=== PATIENT | male | born 1980 | race African-American/Black ===

== ENCOUNTER 2023-01-28 16:02 | Inpatient (IN) ==
--- NOTE | 2023-01-28 16:14 | ED Triage Note ---
Date of Service January 28, 2023 History of Present Illness This patient was briefly evaluated while in triage. An abbreviated physical exam was performed. This patient is a 42-year-old Male who presents to the ED for evaluation of chest pain and anxiety, also having suicidal thoughts. Notes that he is having increased emotional pain due to recent loss of his father, as well as the anniversary of his mother's . [place] and ran out of his medications, including Wellbutrin, which he has not taken in 4 days. He states he had severe chest pain that woke him up around 4am and lasted about 30 minutes, no chest pain now. Denies SOB, dizziness, syncope, nausea, vomiting. Physical Exam CONSTITUTIONAL: No acute distress. Well appearing. RESPIRATORY: Clear to auscultation bilaterally. Equal expansion bilaterally. CARDIOVASCULAR: Regular rate and rhythm with no murmurs, rubs or gallops. Normal peripheral perfusion. No peripheral edema. GASTROINTESTINAL: Soft NEUROLOGIC: Alert and oriented X 4. Normal speech. Normal gait observed. Initial orders for labs and / or imaging were placed and patient was placed in the waiting area until a bed is available. Please see further documentation for the full ED course.
[2023-01-28] MEDS ORDERED: ASPIRIN CHEW 324 MG PO STA (16:35)
[2023-01-28] MEDS ORDERED: hydrALAZINE HCL 20 MG/ML VIAL IV STA (16:39)
--- NOTE | 2023-01-28 16:48 | Emergency Department Note ---
History of Present Illness General Chief complaint: Mental Health Evaluation Stated complaint: PSYCH ISSUES Time Seen by Provider: 01/28/23 16:27 History of Present Illness 42-year-old male presents emergency department with a complaint of substernal chest pressure that radiates to his left arm that started at 4:30 AM this morning. Patient has a history of diabetes and hypertension. Patient also presents stating that he feels depressed with suicidal ideation but no specific plan. Patient does take Wellbutrin he forgot to take it this morning. Patient states that his father recently in November his mother in December and his brother in January and this is weighing heavily on him. Patient states that he did not take anything for the pain he did not take any medications prior to arrival. Patient denies alcohol or drug ingestion. Patient states that the chest pressure was substernal in nature and radiated to the left arm. Patient denies any nausea vomiting denies diaphoresis. There are no other mitigating or alleviating factors Allergies Allergy/AdvReac Type Severity Reaction Status Date / Time No Known Allergies Allergy Unverified 01/28/23 17:04 Past Med/Surg History Social History Smoking Status: Current every day smoker Feels Safe at Home: Yes Review of Systems A total of 10 systems reviewed and were otherwise negative Cardiovascular: + chest pain Psychiatric: + depression, + suicidal ideation and + anxiety Physical Exam Vital Signs Vital Signs - 24 hr 01/28/23 16:09 01/28/23 17:04 01/28/23 18:46 Temperature 36.5 C Temperature Source Skin Pulse Rate 89 Pulse Rate [Left Finger] 96 H 96 H Respiratory Rate 20 20 20 Respiratory Effort / Characteristics Non-Labored Spontaneous Respiratory Depth Normal Respiratory Pattern Regular Blood Pressure 208/111 H Blood Pressure [Left Arm] 157/92 H 157/101 H Blood Pressure Mean 143 Blood Pressure Mean [Left Arm] 113 119 Pulse Oximetry 97 98 98 Oxygen Delivery Method Room Air Sepsis Recent Fever Within 48 Hours No Sepsis New/Unexplained Change in Mental Status N/A Sepsis Action Taken by Nursing No Action Required GENERAL: Patient is awake alert in no acute distress patient is resting comfort ably and showing no signs of anxiety EYES: The conjunctivae are clear. The pupils are round and reactive. EARS, NOSE, MOUTH AND THROAT: The nose is without any evidence of any deformity. Mucous membranes are moist. Tongue is midline. NECK: The neck is nontender and supple. RESPIRATORY: Normal respiratory effort is noted there is no evidence of wheezing rhonchi or rales CARDIOVASCULAR: Regular rate and rhythm noted there no murmurs rubs or gallops normal S1 normal S2. GASTROINTESTINAL: The abdomen is soft. Abdomen is nontender. BMI>40 BACK: No midline tenderness or or step-off noted range of motion in flexion extension as well as rotation no signs of muscle spasm noted MUSCULOSKELETAL/EXTREMITIES: There is no evidence of gross deformity full range of motion is noted in the hips and shoulders. SKIN: There is no obvious evidence of any rash. There are no petechiae, pallor or cyanosis noted. NEUROLOGIC: Patient is awake alert and oriented x3 strength is symmetric PSYCH: Mild depression, suicidal ideations without specific plan Course Reevaluation(s) Reevaluation #1: Patient is resting in no distress his blood pressure did decrease after 1 dose of IV hydralazine, the patient was given aspirin Time: 19:08 Consultations Consultation #1: Case was discussed with Dr. Dahl from the [facility] program for admission for chest pain and suicidal ideation Time: 17:59 Consultation #2: This case was discussed with the [facility] as the case was turned over to them as an unassigned patient and I discussed evaluation and disposition with them. The patient will be admitted to Dr. Perdomo Time: 19:08 Administered Medications Discontinued Medications Aspirin (Aspirin Chew 324 Mg) 324 mg PO NOW STA Stop: 01/28/23 16:36 Last Admin: 01/28/23 16:55 Dose: 324 mg Documented By: SAMI Hydralazine HCl (Hydralazine Hcl 20 Mg/Ml Vial) 10 mg IV NOW STA Stop: 01/28/23 16:40 Last Admin: 01/28/23 16:55 Dose: 10 mg Documented By: SAMI Critical Care Time Critical Care Time: Yes Total Critical Care Time: 35 I have personally spent greater than 35 minutes of critical care time in the direct management of this patient. This includes bedside care, interpretation of diagnostic studies, and testing, discussion with consultants, patient, and family members, and other required patient management activities. These minutes are in excess of all separately billable procedures. Medical Decision Making Medical Records Attestation: I reviewed the patient's medical records. Home Medications Current Medication List: was personally reviewed by me Laboratory Data Attestation: I reviewed the patient's lab results. Lab work interpreted by me is unremarkable 01/28/23 16:42 01/28/23 16:42 Lab Results 01/28/23 01/28/23 01/28/23 Range/Units 16:24 16:24 16:42 WBC 7.46 (4.8-10.8) K/ul RBC 5.09 (4.70-6.10) M/uL Hgb 13.9 L (14.0-18.0) g/dl Hct 42.1 (42.0-52.0) % MCV 82.7 (80.0-100.0) fL MCH 27.3 (25.0-34.0) pg MCHC 33.0 (32.0-36.0) g/dL RDW Std Deviation 40.0 (36.4-46.3) fL RDW Coeff of Dain 13.3 (11.5-14.5) % Plt Count 272 (130-400) K/uL MPV 10.3 (9.4-12.4) fL Immature Gran % (Auto) 0.3 % Neut % (Auto) 77.5 % Lymph % (Auto) 9.1 % [place] % (Auto) 7.6 % Eos % (Auto) 5.1 % Baso % (Auto) 0.4 % Neut # (Auto) 5.78 (1.40-6.50) K/uL Lymph # (Auto) 0.68 L (1.2-3.4) K/uL [place] # (Auto) 0.57 (0.11-0.59) K/uL Eos # (Auto) 0.38 (0-0.50) K/uL Baso # (Auto) 0.03 (0-0.2) K/uL Immature Gran # (Auto) 0.02 (0.01-0.20) K/uL Sodium (136-145) mmol/L Potassium (3.5-5.1) mmol/L Chloride (98-107) mmol/L Carbon Dioxide (21-32) mmol/L Anion Gap (3-11) BUN (6-23) mg/dl Creatinine (0.6-1.4) mg/dl Est Cr Clr Drug Dosing ml/min Est GFR ( Amer) ml/min Est GFR (Non-Af Amer) ml/min BUN/Creatinine Ratio (10-20) Glucose (70-99(Fasting)) mg/dl Calcium (8.6-10.3) mg/dl Total Bilirubin (0.2-1.0) mg/dl AST (13-39) U/L ALT (7-52) U/L Alkaline Phosphatase (34-104) U/L Troponin I High Sens (0-20) pg/ml Total Protein (6.0-8.3) gm/dl Albumin (3.4-5.0) gm/dl Globulin (2.5-4.0) gm/dl Albumin/Globulin Ratio (0.9-2) TSH (0.300-4.500) uIu/ml Urine Color Dark Yellow Urine Appearance Clear (Clear) Urine pH 6.0 (4.5-7.5) Ur Specific [place] 1.026 (1.000-1.030) Urine Protein 2+ H (Negative) Urine Glucose (UA) Negative (Negative) Urine Ketones Trace H (Negative) Urine Blood Negative (Negative) Urine Nitrite Negative (Negative) Urine Bilirubin Negative (Negative) Urine Urobilinogen Negative (Negative) Ur Leukocyte Esterase Negative (Negative) Urine WBC (Auto) 1-5 (0-5) /hpf Urine RBC (Auto) 0-4 (0-4) /hpf U Hyaline Cast (Auto) 5-10 H (0-5) /lpf U Epithel Cells (Auto) 10-20 H (0-5) /lpf Urine Bacteria (Auto) Negative (Negative) Salicylates (3.0-30) mg/dl Urine Opiates Screen Neg (Neg) Ur Methadone, Qual Neg (Neg) Acetaminophen (10-30) ug/ml Urine Barbiturates Neg (Neg) Ur Phencyclidine (PCP) Neg (Neg) U Amphetamin/Meth Scrn Neg (Neg) MDMA (Ecstasy) Screen Neg (Neg) U Benzodiazepines Scrn Neg (Neg) Ur Cocaine Metabolite Neg (Neg) U Marijuana (THC) Screen Neg (Neg) Ethyl Alcohol mg/dL (<10.0) mg/dl 01/28/23 01/28/23 01/28/23 Range/Units 16:42 16:42 16:42 WBC (4.8-10.8) K/ul RBC (4.70-6.10) M/uL Hgb (14.0-18.0) g/dl Hct (42.0-52.0) % MCV (80.0-100.0) fL MCH (25.0-34.0) pg MCHC (32.0-36.0) g/dL RDW Std Deviation (36.4-46.3) fL RDW Coeff of Dain (11.5-14.5) % Plt Count (130-400) K/uL MPV (9.4-12.4) fL Immature Gran % (Auto) % Neut % (Auto) % Lymph % (Auto) % [place] % (Auto) % Eos % (Auto) % Baso % (Auto) % Neut # (Auto) (1.40-6.50) K/uL Lymph # (Auto) (1.2-3.4) K/uL [place] # (Auto) (0.11-0.59) K/uL Eos # (Auto) (0-0.50) K/uL Baso # (Auto) (0-0.2) K/uL Immature Gran # (Auto) (0.01-0.20) K/uL Sodium 135 L (136-145) mmol/L Potassium 3.8 (3.5-5.1) mmol/L Chloride 106 (98-107) mmol/L Carbon Dioxide 23 (21-32) mmol/L Anion Gap 6 (3-11) BUN 12 (6-23) mg/dl Creatinine 1.00 (0.6-1.4) mg/dl Est Cr Clr Drug Dosing 160.8 ml/min Est GFR ( Amer) 108.6 ml/min Est GFR (Non-Af Amer) 93.7 ml/min BUN/Creatinine Ratio 12.0 (10-20) Glucose 163 H (70-99(Fasting)) mg/dl Calcium 9.0 (8.6-10.3) mg/dl Total Bilirubin 0.6 (0.2-1.0) mg/dl AST 16 (13-39) U/L ALT 18 (7-52) U/L Alkaline Phosphatase 95 (34-104) U/L Troponin I High Sens 5.4 (0-20) pg/ml Total Protein 7.7 (6.0-8.3) gm/dl Albumin 3.8 (3.4-5.0) gm/dl Globulin 3.9 (2.5-4.0) gm/dl Albumin/Globulin Ratio 1.0 (0.9-2) TSH 1.309 (0.300-4.500) uIu/ml Urine Color Urine Appearance (Clear) Urine pH (4.5-7.5) Ur Specific [place] (1.000-1.030) Urine Protein (Negative) Urine Glucose (UA) (Negative) Urine Ketones (Negative) Urine Blood (Negative) Urine Nitrite (Negative) Urine Bilirubin (Negative) Urine Urobilinogen (Negative) Ur Leukocyte Esterase (Negative) Urine WBC (Auto) (0-5) /hpf Urine RBC (Auto) (0-4) /hpf U Hyaline Cast (Auto) (0-5) /lpf U Epithel Cells (Auto) (0-5) /lpf Urine Bacteria (Auto) (Negative) Salicylates < 3.0 L (3.0-30) mg/dl Urine Opiates Screen (Neg) Ur Methadone, Qual (Neg) Acetaminophen < 3 L (10-30) ug/ml Urine Barbiturates (Neg) Ur Phencyclidine (PCP) (Neg) U Amphetamin/Meth Scrn (Neg) MDMA (Ecstasy) Screen (Neg) U Benzodiazepines Scrn (Neg) Ur Cocaine Metabolite (Neg) U Marijuana (THC) Screen (Neg) Ethyl Alcohol mg/dL (<10.0) mg/dl 01/28/23 Range/Units 16:42 WBC (4.8-10.8) K/ul RBC (4.70-6.10) M/uL Hgb (14.0-18.0) g/dl Hct (42.0-52.0) % MCV (80.0-100.0) fL MCH (25.0-34.0) pg MCHC (32.0-36.0) g/dL RDW Std Deviation (36.4-46.3) fL RDW Coeff of Dain (11.5-14.5) % Plt Count (130-400) K/uL MPV (9.4-12.4) fL Immature Gran % (Auto) % Neut % (Auto) % Lymph % (Auto) % [place] % (Auto) % Eos % (Auto) % Baso % (Auto) % Neut # (Auto) (1.40-6.50) K/uL Lymph # (Auto) (1.2-3.4) K/uL [place] # (Auto) (0.11-0.59) K/uL Eos # (Auto) (0-0.50) K/uL Baso # (Auto) (0-0.2) K/uL Immature Gran # (Auto) (0.01-0.20) K/uL Sodium (136-145) mmol/L Potassium (3.5-5.1) mmol/L Chloride (98-107) mmol/L Carbon Dioxide (21-32) mmol/L Anion Gap (3-11) BUN (6-23) mg/dl Creatinine (0.6-1.4) mg/dl Est Cr Clr Drug Dosing ml/min Est GFR ( Amer) ml/min Est GFR (Non-Af Amer) ml/min BUN/Creatinine Ratio (10-20) Glucose (70-99(Fasting)) mg/dl Calcium (8.6-10.3) mg/dl Total Bilirubin (0.2-1.0) mg/dl AST (13-39) U/L ALT (7-52) U/L Alkaline Phosphatase (34-104) U/L Troponin I High Sens (0-20) pg/ml Total Protein (6.0-8.3) gm/dl Albumin (3.4-5.0) gm/dl Globulin (2.5-4.0) gm/dl Albumin/Globulin Ratio (0.9-2) TSH (0.300-4.500) uIu/ml Urine Color Urine Appearance (Clear) Urine pH (4.5-7.5) Ur Specific [place] (1.000-1.030) Urine Protein (Negative) Urine Glucose (UA) (Negative) Urine Ketones (Negative) Urine Blood (Negative) Urine Nitrite (Negative) Urine Bilirubin (Negative) Urine Urobilinogen (Negative) Ur Leukocyte Esterase (Negative) Urine WBC (Auto) (0-5) /hpf Urine RBC (Auto) (0-4) /hpf U Hyaline Cast (Auto) (0-5) /lpf U Epithel Cells (Auto) (0-5) /lpf Urine Bacteria (Auto) (Negative) Salicylates (3.0-30) mg/dl Urine Opiates Screen (Neg) Ur Methadone, Qual (Neg) Acetaminophen (10-30) ug/ml Urine Barbiturates (Neg) Ur Phencyclidine (PCP) (Neg) U Amphetamin/Meth Scrn (Neg) MDMA (Ecstasy) Screen (Neg) U Benzodiazepines Scrn (Neg) Ur Cocaine Metabolite (Neg) U Marijuana (THC) Screen (Neg) Ethyl Alcohol mg/dL < 10.0 (<10.0) mg/dl Imaging Data Attestation: I personally reviewed and interpreted this imaging study as follows: My Impression: Chest x-ray interpreted by me normal mediastinum no obvious infiltrate no pneum othorax poor inspiratory effort Radiologist's Impression: Chest X-Ray 01/28/23 16:14 XR chest 1V portable CLINICAL HISTORY: chest pain TECHNIQUE: Single frontal radiograph of the chest was obtained. Comparison: None available at the time of this dictation. FINDINGS: No lines and tubes are seen. The cardiomediastinal silhouette is normal. Lungs are underinflated but clear. No evidence of pleural effusion or pneumothorax. IMPRESSION: No acute chest disease. ACT 112: Negative or not required by law. Electronically signed by: Edgar Patiño M.D. 01/28/2023 5:16 PM ECG Data Attestation: I personally reviewed and interpreted this ECG as follows: Additional Comments: EKG interpreted by me normal sinus rhythm nonspecific T wave abnormality no obvious ST segment elevation or depression rate is 86 Telemetry was ordered by me interpreted as normal sinus rhythm rate of 86 Blood Pressure Blood Pressure Findings: Elevated blood pressure MDM Narrative Medical decision making differential diagnosis includes angina, unstable angina, hypertensive crisis, hypertensive emergency, depression, suicidal ideation, electrolyte abnormality Plan is to check cardiac labs, psychiatric labs for medical clearance, treat with aspirin, hydralazine Case management to evaluate for psychiatric disposition Patient's heart score is a 4 Patient was started on IV hydralazine for blood pressure control he is not in hypertensive crisis at this time, patient was also given aspirin, patient will be admitted for cardiac rule out as well as psychiatric consultation Impression & Plan Chest pain, Suicidal ideation, Hypertensive urgency Discharge Plan Visit Data Chief Complaint: Mental Health Evaluation Stated Complaint: PSYCH ISSUES ED Provider: Francisco Aponte Discharge Problem: Chest pain, Suicidal ideation, Hypertensive urgency Patient Disposition: Admitted As Inpatient Forms Stand Alone Forms: [facility], Suicide Prevention Resources Referrals Referrals: PCP,NO [Primary Care Provider] -
[2023-01-28 16:49] LABS: Appearance Urine Clear (Clear); Bacteria Urine Automated Negative (Negative); Bilirubin Urine Negative (Negative); Blood Urine Negative (Negative); Color Urine Dark Yellow; Glucose Urine UA Negative (Negative); Ketones Urine Trace (Negative); Leukocyte Esterase Urine Negative (Negative); Nitrite Urine Negative (Negative); Protein Urine 2+ (Negative); RBC Urine Automated 0-4 /hpf (0-4); Specific Gravity Urine 1.026 (1.000-1.030); Urobilinogen Urine Negative (Negative)
[2023-01-28 17:05] LABS: Amphetamines+Metham, Urine Neg (Neg); Barbiturates, Urine Neg (Neg); Benzodiazepine, Urine Neg (Neg); Cocaine, Urine Neg (Neg); MDMA (Ecstacy), Urine Neg (Neg); Methadone, Urine Neg (Neg); Opiate, Urine Neg (Neg); Phencyclidine, Urine Neg (Neg)
[2023-01-28 17:08] LABS: Basophils # (auto) 0.03 K/uL (0-0.2); Basophils % (auto) 0.4 %; Eosinophils # (auto) 0.38 K/uL (0-0.50); Eosinophils % (auto) 5.1 %; Hematocrit (blood only) 42.1 % (42.0-52.0); Hemoglobin 13.9 g/dl (14.0-18.0); Immature Granulocytes # (auto) 0.02 K/uL (0.01-0.20); Immature Granulocytes % (auto) 0.3 %; Lymphocytes # (auto) 0.68 K/uL (1.2-3.4); Lymphocytes % (auto) 9.1 %; Mean Corpuscular Hemoglobin 27.3 pg (25.0-34.0); Mean Corpuscular Volume 82.7 fL (80.0-100.0); Mean Platelet Volume 10.3 fL (9.4-12.4); Monocytes # (auto) 0.57 K/uL (0.11-0.59); Monocytes % (auto) 7.6 %; Neutrophils # (auto) 5.78 K/uL (1.40-6.50); Neutrophils % (auto) 77.5 %; Platelet Count 272 K/uL (130-400); RDW Coefficient of Variation 13.3 % (11.5-14.5); Red Blood Count 5.09 M/uL (4.70-6.10); White Blood Count 7.46 K/ul (4.8-10.8)
--- NOTE | 2023-01-28 17:18 | XRay Report ---
XR chest 1V portable CLINICAL HISTORY: chest pain TECHNIQUE: Single frontal radiograph of the chest was obtained. Comparison: None available at the time of this dictation. FINDINGS: No lines and tubes are seen. The cardiomediastinal silhouette is normal. Lungs are underinflated but clear. No evidence of pleural effusion or pneumothorax. IMPRESSION: No acute chest disease. ACT 112: Negative or not required by law. Electronically signed by: Edgar Patiño M.D. 01/28/2023 5:16 PM
[2023-01-28 17:25] LABS: Albumin Level 3.8 gm/dl (3.4-5.0); Bilirubin,Total 0.6 mg/dl (0.2-1.0); Creatinine Clr Calc Pharmacy 160.8 ml/min; Est GFR (African American) 108.6 ml/min; Est GFR (Non-African American) 93.7 ml/min; Globulin 3.9 gm/dl (2.5-4.0); Potassium 3.8 mmol/L (3.5-5.1); Total Protein 7.7 gm/dl (6.0-8.3)
[2023-01-28 17:30] LABS: Troponin I High Sensitivity 5.4 pg/ml (0-20)
[2023-01-28 17:43] LABS: Acetaminophen < 3 ug/ml (10-30); Salicylate < 3.0 mg/dl (3.0-30)
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
[2023-01-28] MEDS ORDERED: LABETALOL HCL IV 5 MG/ML 20ML IV STA ×2 (20:40→22:17)
[2023-01-28] MEDS: NITROGLYCERIN 2% OINTMENT 30GM TUBE EXT SCH (20:41)
[2023-01-28] MEDS ORDERED: buPROPion XL 150 MG TABCR PO SCH (21:30)
[2023-01-28] MEDS ORDERED: lisinopril 20 MG TAB PO STA (21:32)
[2023-01-28 22:50] LABS: Troponin I High Sensitivity 8.2 pg/ml (0-20)
[2023-01-28] MEDS ORDERED: DEXTROSE 50% 50 ML SYRINGE IV PRN (23:15)
[2023-01-28] MEDS ORDERED: ACETAMINOPHEN 325 MG TAB PO PRN (23:15)
[2023-01-28] MEDS ORDERED: GLUCOSE 10 TAB/TUBE PO PRN (23:15)
[2023-01-28] MEDS ORDERED: GLUCAGON FOR INJ 1 MG VIAL SQ PRN (23:15)
[2023-01-28] MEDS ORDERED: GLUCOSE 40% GEL 15 GM TUBE PO PRN (23:15)
[2023-01-28] MEDS ORDERED: POLYETHYLENE (MIRALAX) 17 GM PACK PO PRN (23:15)
[2023-01-28] MEDS ORDERED: CARBOHYDRATES FOR HYPOGLYCEMIA PO PRN (23:15)
[2023-01-28 23:41] LABS: Chol HDL Ratio 3.9 (0-5)
[2023-01-29] MEDS: ENOXAPARIN INJ 40 MG/0.4 ML SYR SQ SCH ×3 (00:44→23:44)
[2023-01-29] MEDS: NITROGLYCERIN 2% OINTMENT 30GM TUBE EXT SCH ×2 (01:26→09:22)
[2023-01-29] MEDS: ATORVASTATIN 20 MG TAB PO SCH ×2 (02:41→21:49)
[2023-01-29 06:10] LABS: Hematocrit (blood only) 38.8 % (42.0-52.0); Hemoglobin 12.8 g/dl (14.0-18.0); Mean Corpuscular Hemoglobin 27.1 pg (25.0-34.0); Mean Corpuscular Volume 82.2 fL (80.0-100.0); Mean Platelet Volume 10.4 fL (9.4-12.4); Platelet Count 250 K/uL (130-400); RDW Coefficient of Variation 13.4 % (11.5-14.5); RDW Standard Deviation 40.4 fL (36.4-46.3); Red Blood Count 4.72 M/uL (4.70-6.10)
[2023-01-29 06:28] LABS: BUN Creatinine Ratio 15.1 (10-20); Calcium 8.7 mg/dl (8.6-10.3); Chol HDL Ratio 3.6 (0-5); Creatinine Clr Calc Pharmacy 172.9 ml/min; Est GFR (African American) 118.6 ml/min; Est GFR (Non-African American) 102.3 ml/min; Magnesium 1.8 mg/dl (1.7-2.4); Potassium 3.8 mmol/L (3.5-5.1)
[2023-01-29] MEDS: INSULIN ASPART PER UNIT CHARGE SC SCH ×2 (08:20→12:14)
[2023-01-29 08:27] LABS: Estimated Average Glucose 143 mg/dl; Hemoglobin A1C 6.6 % (4.5-5.6)
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
[2023-01-29] MEDS: ASPIRIN 81 MG ECTAB PO SCH (10:37)
[2023-01-29] MEDS: LISINOPRIL/HCTZ 20/12.5MG 1 TAB TAB PO SCH (10:37)
[2023-01-29] MEDS ORDERED: BUTALBITAL/ASPIRIN/CAFFEINE 1 TAB TAB PO STA (12:25)
--- NOTE | 2023-01-29 12:35 | Hospitalist Progress Note ---
Date of Service January 29, 2023 Assessment & Plan (1) Suicidal ideation: Plan: Worsening depression with suicidal ideations reported. Recent triggers as noted above and he has kayleen out of his Welbutrin for 4 days. Restarted the Welbutrin and this is being adjusted to QAM by psych. Initial plan is for inpatient psychiatric care. Cont 1:1 and safe tray (2) Hypertensive urgency: Plan: Chronic HTN and out of medications for the past week. Also with situational stress noted above. BP now under control today. Chest pain is improved. Cont monitoring one more day as he is planned to transfer into the mental health unit. Cont lis/HCTZ 20/12.5mg daily. (3) Chest pain: Plan: Likely related to elevated blood pressure. Resolved now that BP is improved. Defer to cardiology regarding plans for a stress test. Cont BP regimen as noted above. Multiple risk factors for CAD, and reports being set up for a stress test for which he was noncompliant. Defer to cardiology on the need for additional workup at this time. (4) Smoker: Plan: 20 pack year history of smoking. Counseled on cessation. Contemplative phase and states he is using chewing tobacco to help him quit. (5) DMII (diabetes mellitus, type 2): Plan: A1C 6.6 reflecting good control. Pt refusing blood glucose checks or insulin which were stopped. Plan to restart metformin as no further contrasted studies are ordered. Cont diabetic diet. (6) Depression: Plan: Chronic, restart Wellbutrin as above. Counseled on the importance of connecting with an outpatient therapist. He verbalized understanding with intent to comply. Planning for inpatient mental health treatment. (7) Migraine: Plan: known h/o migraines with a current headache. Typically relies on Excedrin for . Given Fiorinal now. (8) Morbid obesity: Plan: Lifestyle changes needed to reduce overall body fat and increase lean muscle mass. He would qualify for Ozempic therapy and may want to consider this as outpatient for weight loss and glucose control. Lovenox Full Code Dispo-pending psychiatric and cardiology recommendations. Rissa Perdomo DO [facility] Hospitalist Admission and Anticipated Discharge Date Admission Date: January 28, 2023 Subjective 42 yo M admitted for SI and chest pain with uncontrolled BP BP is improved after restarting HCTZ and adding ACEI chest pain has resolved reports a headache and h/o mirgraines states usually these are better with Excedrin eating well Review of Systems Review of Systems: All systems were reviewed and negative except as indicated on HPI above Physical Exam Physical Exam: CONSTITUTIONAL: WNWD, vitals as above, generally well-appearing, NAD EYES: PERRL. normal conjunctivae, no scleral icterus ENT: external ear and nose normal, MMM NECK: trachea midline RESPIRATORY: clear to auscultation bilaterally, no crackles, rales or wheezes, normal respiratory effort CARDIOVASCULAR: regular rate and rhythm, S1 and 2 heard without murmurs, gallops or rubs, no JVD, no peripheral edema CHEST: inspection of chest was normal GASTROINTESTINAL: soft, nontender, ND, no guarding MUSCULOSKELETAL: strength 5/5 throughout, head is normocephalic and atraumatic SKIN: warm and dry NEUROLOGIC: CN 2-12 grossly intact, no sensory deficit, normal cognition, normal speech, no tremor PSYCHIATRIC: alert cooperative and oriented to person, place and time. Euthymic mood, makes good eye contact, language grossly intact, recent and remote memory grossly intact. Results & Data Results & Data Vital Signs (Past 12 Hours) Vital Signs Temp Pulse Resp BP Pulse Ox O2 Del Method 01/29/23 11:37 36.6 C 88 18 110/60 98 Room Air 01/29/23 06:56 36.8 C 88 18 122/70 97 Room Air 01/29/23 02:19 36.8 C 87 20 129/69 97 Room Air Laboratory Results Short CBC 01/28/23 01/29/23 Range/Units 16:42 05:30 WBC 7.46 7.30 (4.8-10.8) K/ul Hgb 13.9 L 12.8 L (14.0-18.0) g/dl Hct 42.1 38.8 L (42.0-52.0) % Plt Count 272 250 (130-400) K/uL BMP 01/28/23 01/29/23 16:42 05:30 Sodium 135 L 136 Potassium 3.8 3.8 Chloride 106 108 H Carbon Dioxide 23 23 BUN 12 14 Creatinine 1.00 0.93 Glucose 163 H 101 H Calcium 9.0 8.7 Liver Function 01/28/23 Range/Units 16:42 Total Bilirubin 0.6 (0.2-1.0) mg/dl AST 16 (13-39) U/L ALT 18 (7-52) U/L Alkaline Phosphatase 95 (34-104) U/L Albumin 3.8 (3.4-5.0) gm/dl Urine 01/28/23 Range/Units 16:24 Urine Color Dark Yellow Urine Appearance Clear (Clear) Urine pH 6.0 (4.5-7.5) Ur Specific [place] 1.026 (1.000-1.030) Urine Protein 2+ H (Negative) Urine Glucose (UA) Negative (Negative) Medications Administered Current Inpatient Medications Acetaminophen (Acetaminophen 325 Mg Tab) 650 mg PO Q4H PRN PRN Reason: Pain or Fever Stop: 02/27/23 23:14 Aspirin (Aspirin 81 Mg Ectab) [facility] Stop: 02/28/23 08:59 Last Admin: 01/29/23 10:37 Dose: 81 mg Atorvastatin Calcium (Atorvastatin 20 Mg Tab) 20 mg PO HS [facility] Stop: 02/27/23 23:14 Last Admin: 01/29/23 02:41 Dose: 20 mg Bupropion HCl (Bupropion Xl 150 Mg Tabcr) 450 mg PO HS [facility] Stop: 02/27/23 21:29 Last Admin: 01/28/23 21:47 Dose: 450 mg Butalbital/Aspirin/Caffeine (Butalbital/Aspirin/Caffeine 1 Tab Tab) 1 tab PO ONCE STA Stop: 01/29/23 12:26 Dextrose (Dextrose 50% 50 Ml Syringe) 25 - 50 ml IV UD PRN; Protocol PRN Reason: Hypoglycemia Protocol Stop: 02/27/23 23:14 Enoxaparin Sodium (Enoxaparin Inj 40 Mg/0.4 Ml Syr) 40 mg SQ Q12H BETTIE Stop: 02/28/23 00:00 Last Admin: 01/29/23 12:15 Dose: Not Given Glucagon (Glucagon For Inj 1 Mg Vial) 1 mg SQ UD PRN; Protocol PRN Reason: Hypoglycemia Protocol Stop: 02/27/23 23:14 Glucose (Glucose 10 Tab/Tube) 4 - 8 tab PO UD PRN; Protocol PRN Reason: Hypoglycemia Treatment Stop: 02/27/23 23:14 Glucose (Glucose 40% Gel 15 Gm Tube) 15 - 30 gm PO UD PRN; Protocol PRN Reason: Hypoglycemia Protocol Stop: 02/27/23 23:14 Lisinopril/HCTZ (Lisinopril/Hctz 20/12.5mg 1 Tab Tab) 1 tab PO QAM [facility] Stop: 02/28/23 08:59 Last Admin: 01/29/23 10:37 Dose: 1 tab Insulin Aspart (Insulin Aspart Per Unit Charge) 0 units SC ACHS [facility] Stop: 02/28/23 07:29 Last Admin: 01/29/23 12:14 Dose: Not Given Miscellaneous (Carbohydrates For Hypoglycemia ) 15 - 30 gm PO UD PRN PRN Reason: Hypoglycemia Protocol Stop: 02/27/23 23:14 Polyethylene Glycol (Polyethylene (Miralax) 17 Gm Pack) 17 gm PO DAILY PRN PRN Reason: Constipation Stop: 02/27/23 23:14 (3) Chest pain Chest pain type: other chest pain Qualified Code(s): R07.89 - Other chest pain
--- NOTE | 2023-01-29 12:52 | Electrocardiogram Report ---
Test Reason : Blood Pressure : / mmHG Vent. Rate : 086 BPM Atrial Rate : 086 BPM P-R Int : 150 ms QRS Dur : 080 ms QT Int : 364 ms P-R-T Axes : 060 029 005 degrees QTc Int : 435 ms Normal sinus rhythm Nonspecific T wave abnormality Abnormal ECG No previous ECGs available Confirmed by Kieran Churchill ([id number]) on 01/29/2023 12:52:20 PM Referred By: REFERRED SELF Confirmed By:Kieran Churchill
--- NOTE | 2023-01-29 13:08 | Electrocardiogram Report ---
Test Reason : Blood Pressure : / mmHG Vent. Rate : 083 BPM Atrial Rate : 083 BPM P-R Int : 164 ms QRS Dur : 086 ms QT Int : 398 ms P-R-T Axes : 060 029 -08 degrees QTc Int : 467 ms Normal sinus rhythm Nonspecific T wave abnormality Prolonged QT Abnormal ECG No previous ECGs available Confirmed by Kieran Churchill ([id number]) on 01/29/2023 1:08:24 PM Referred By: REFERRED SELF Confirmed By:Kieran Churchill
[2023-01-29] MEDS ORDERED: buPROPion XL 300 MG TABCR PO ONE (13:14)
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
[2023-01-29] MEDS: metFORMIN HCL 500 MG TAB PO SCH (17:16)
[2023-01-29] MEDS ORDERED: POTASSIUM CHLORIDE CRTAB 20 MEQ TABCR PO STA (21:07)
--- NOTE | 2023-01-29 21:08 | Communication Note ---
Date of Service: January 29, 2023 Made aware by RN of uncontrolled blood pressure. SBP 160s to 170s . Patient asymptomatic as per RN. AP Uncontrolled hypertension Add amlodipine to patient's lisinopril HCTZ Rx.
[2023-01-29] MEDS ORDERED: amLODIPine BESYLATE 5 MG TAB PO SCH (21:10)
[2023-01-29] MEDS ORDERED: MAGNESIUM SULFATE / D5W 1 GM/100 ML BAG IV ONE (21:15)
[2023-01-30] MEDS: metFORMIN HCL 500 MG TAB PO SCH (07:26)
[2023-01-30] MEDS: LISINOPRIL/HCTZ 20/12.5MG 1 TAB TAB PO SCH (07:27)
[2023-01-30] MEDS: ASPIRIN 81 MG ECTAB PO SCH (07:27)
[2023-01-30 08:07] LABS: BUN Creatinine Ratio 16.1 (10-20); Calcium 8.6 mg/dl (8.6-10.3); Creatinine Clr Calc Pharmacy 172.9 ml/min; Est GFR (African American) 118.6 ml/min; Est GFR (Non-African American) 102.3 ml/min
[2023-01-30] MEDS ORDERED: cloNIDine HCL 0.1 MG TAB PO ONE (09:00)
[2023-01-30] MEDS ORDERED: buPROPion XL 150 MG TABCR PO SCH (09:00)
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
--- NOTE | 2023-01-30 11:36 | Communication Note ---
Date of Service: January 30, 2023 case discussed with liaison nurses earlier this am as patient denied suicidal ideation and wanted to leave the hospital. He had tolerated restart of Wellbut rin. He was given info about transfering his MA to NH and a purple resource book. He completed a safety plan. Given that there was no evidence of psychosis and he was behaviorally appropriate with no impulsive acts or indication of self harm on the med floor there was no indication to pursue and involuntary commitment. I do see that he is currently being reassessed in the ED for CP.
--- NOTE | 2023-01-30 15:22 | Electrocardiogram Report ---
Test Reason : Blood Pressure : / mmHG Vent. Rate : 074 BPM Atrial Rate : 074 BPM P-R Int : 168 ms QRS Dur : 076 ms QT Int : 408 ms P-R-T Axes : 054 027 -07 degrees QTc Int : 452 ms Normal sinus rhythm with sinus arrhythmia Normal ECG When compared with ECG of 29-JAN-2023 05:33, Nonspecific T wave abnormality no longer evident in Anterolateral leads Confirmed by Kieran Churchill ([id number]) on 01/30/2023 3:21:39 PM Referred By: REFERRED SELF Confirmed By:Kieran Churchill
== END 2023-01-30 10:21 | disposition home or self-care (01) | DRG 880 ==
LOC: ED 16:02 → 2S 20:15